=== PATIENT | female | born 1945 | race Asian ===

== ENCOUNTER 2018-12-15 13:05 | Inpatient (IN) | payer MEDICARE, MEDICAID ==
[~2018-12-15] VITALS: Ht 149.9 cm; Wt 81.6 kg
[2018-12-15] MEDS ORDERED: PLEASE ENTER HEIGHT AND WEIGHT MC SCH (13:30)
[2018-12-15] MEDS ORDERED: SODIUM CHLORIDE FLUSH 10ML SYR IVF ONE (13:30)
--- NOTE | 2018-12-15 13:31 | NUR ---
BIB EMS FROM HOME. PT W/ C/O GENERALIZED WEAKNESS SINCE JULY. ONSET ON LEFT SIDE CHEST PRESSURE/PAIN THIS MORNING. DENIES SOB, N/V/D. STATES THAT HER MD RECENTLY INCREASED HER METFORMIN FROM 1000MG/DAY TO 1500MG/DAY WELL ONE OTHER 10MG MEDICATION THAT SHE DOESN'T KNOW THE NAME OF. PT TRANSFERED INDEPENDENTLY FROM EMS [facility] TO ED [facility]. DR. JAY AT BEDSIDE, PT ASSESSMENT REV AND QUESTIONS ANSWERED. ORDERS REC'D. ALL MONITORS PLACED, EKG, PCXR AND LABS DRAWN. CALL LIGHT W/I REACH. VS STABLE, NAD NOTED.
[2018-12-15 13:40] LABS: BASOPHILS # (AUTO) 0.05 x10^3/uL (0-0.1); BASOPHILS % (AUTO) 1 % (0-1); EOSINOPHILS # (AUTO) 0.19 x10^3/uL (0-0.4); EOSINOPHILS % (AUTO) 2 % (1-7); LYMPHOCYTES % (AUTO) 22 % (22-44); MD NO; MEAN CORPUSCULAR HEMOGLOBIN 30.2 pg (27.0-34.8); MEAN CORPUSCULAR HGB CONC 33.6 g/dL (32.4-35.8); MEAN PLATELET VOLUME 9.9 fL (7.4-10.4); MONOCYTES # (AUTO) 0.74 x10^3/uL (0.2-0.8); MONOCYTES % (AUTO) 9 % (2-9); NEUTROPHILS # (AUTO) 5.36 x10^3/uL (1.8-6.8); NEUTROPHILS % (AUTO) 66 % (42-75); PLATELET COUNT 298 x10^3/uL (130-400); RED BLOOD COUNT 4.13 x10^6/uL (3.82-5.3); RED CELL DISTRIBUTION WIDTH 13.8 % (9.6-15.2)
[2018-12-15 13:52] LABS: ALANINE AMINOTRANSFERASE 88 U/L (12-78); ALBUMIN 3.6 g/dL (3.4-5.0); ANION GAP 7 mmol/L (5-15); CALCIUM 8.5 mg/dL (8.5-10.1); CHLORIDE 108 mmol/L (98-107); CREATININE 1.03 mg/dL (0.55-1.02)
[2018-12-15 13:54] LABS: MICROSCOPIC NOT IND
[2018-12-15 13:55] LABS: CULTURE INDICATED? NO
[2018-12-15 14:01] LABS: ALKALINE PHOSPHATASE 93 U/L (45-117); BILIRUBIN,TOTAL 0.6 mg/dL (0.2-1.0)
[2018-12-15 14:04] LABS: TROPONIN I 0.139 ng/mL (0.000-0.045)
[2018-12-15] MEDS ORDERED: ASPIRIN 81 MG TABLET CHEW ONE (14:13)
[2018-12-15] MEDS ORDERED: METO-93 PO (14:21)
[2018-12-15] MEDS ORDERED: FURO-93 PO (14:22)
[2018-12-15] MEDS ORDERED: POTA10TA6 PO (14:22)
[2018-12-15] MEDS ORDERED: LINA5TAB PO (14:23)
[2018-12-15] MEDS ORDERED: BACL20TA PO (14:23)
[2018-12-15] MEDS ORDERED: PANT40TA5 PO (14:24)
[2018-12-15] MEDS ORDERED: METF500T9 PO (14:24)
[2018-12-15] MEDS ORDERED: ALPR0.5T6 PO (14:25)
[2018-12-15] MEDS ORDERED: ESCI10TA PO (14:25)
[2018-12-15] MEDS ORDERED: GABA600T7 PO (14:26)
[2018-12-15] MEDS ORDERED: LOSA100T14 PO (14:27)
[2018-12-15] MEDS ORDERED: PHEN37.53 PO (14:29)
[2018-12-15] MEDS ORDERED: ASPIRIN 81 MG TABLET CHEW PO ONE (14:30)
[2018-12-15] MEDS ORDERED: SODIUM CHLORIDE FLUSH 10ML SYR IVF PRN (14:30)
[2018-12-15 14:32] LABS: ACETONE, SERUM Negative (Negative)
--- NOTE | 2018-12-15 14:49 | NUR ---
assumed care of pt while primary rn at lunch. pt assisted to br. hospitalist at bedside at this time.
[2018-12-15] MEDS ORDERED: ACETAMINOPHEN 325 MG TABLET PO PRN (15:00)
[2018-12-15] MEDS ORDERED: hydrALAzine 20 MG/ML, 1ML IVPush PRN (15:00)
[2018-12-15] MEDS ORDERED: NITROGLYCERIN 0.4 MG BOTTLE (25 TABS) SL PRN (15:00)
[2018-12-15] MEDS ORDERED: POLYETHYLENE GLYCOL 17 GM PACKET PO PRN (15:00)
[2018-12-15] MEDS ORDERED: morphine SULFATE 10 MG/ML, 1ML IVPush PRN (15:00)
[2018-12-15 15:34] LABS: HEMOGLOBIN A1C 7.7 % (4.2-6.3)
[2018-12-15 15:35] VITALS: BP 172/106
[2018-12-15 15:43] LABS: TROPONIN I 0.143 ng/mL (0.000-0.045)
[2018-12-15 15:47] VITALS: BP 122/64
[2018-12-15] MEDS ORDERED: ESCITALOPRAM 10MG TABLET PO SCH (16:00)
[2018-12-15] MEDS ORDERED: GABAPENTIN 300 MG CAPSULE PO SCH (16:00)
[2018-12-15] MEDS: INSULIN LISPRO 100 UNITS/ML, PEN SQ-INSULIN SCH ×2 (16:23→20:56)
[2018-12-15] MEDS: HEPARIN 5,000 UNITS/ML, 1ML SQ SCH (16:24)
[2018-12-15 18:37] VITALS: BP 107/70
[2018-12-15 19:32] VITALS: BP 103/67
[2018-12-15] MEDS: GABAPENTIN 300 MG CAPSULE PO SCH (20:56)
[2018-12-15] MEDS ORDERED: BACLOFEN 10 MG TABLET PO SCH (21:00)
[2018-12-15 21:13] LABS: TROPONIN I 0.144 ng/mL (0.000-0.045)
[2018-12-16] MEDS: HEPARIN 5,000 UNITS/ML, 1ML SQ SCH ×2 (01:33→10:32)
[2018-12-16 01:43] VITALS: BP 128/81
[2018-12-16 05:10] LABS: BASOPHILS # (AUTO) 0.06 x10^3/uL (0-0.1); BASOPHILS % (AUTO) 1 % (0-1); EOSINOPHILS % (AUTO) 4 % (1-7); LYMPHOCYTES # (AUTO) 1.97 x10^3/uL (1-3.4); LYMPHOCYTES % (AUTO) 26 % (22-44); MD NO; MEAN CORPUSCULAR HEMOGLOBIN 30.2 pg (27.0-34.8); MEAN CORPUSCULAR HGB CONC 33.3 g/dL (32.4-35.8); MEAN CORPUSCULAR VOLUME 90.5 fL (80-100); MEAN PLATELET VOLUME 9.9 fL (7.4-10.4); MONOCYTES # (AUTO) 0.68 x10^3/uL (0.2-0.8); MONOCYTES % (AUTO) 9 % (2-9); NEUTROPHILS # (AUTO) 4.65 x10^3/uL (1.8-6.8); NEUTROPHILS % (AUTO) 61 % (42-75); PLATELET COUNT 305 x10^3/uL (130-400); RED BLOOD COUNT 4.21 x10^6/uL (3.82-5.3); RED CELL DISTRIBUTION WIDTH 13.7 % (9.6-15.2)
[2018-12-16 05:22] LABS: ALANINE AMINOTRANSFERASE 80 U/L (12-78); ALBUMIN 3.3 g/dL (3.4-5.0); ANION GAP 4 mmol/L (5-15); CALCIUM 8.3 mg/dL (8.5-10.1); CHLORIDE 107 mmol/L (98-107); CHOLESTEROL, TOTAL 157 mg/dL (140-239)
[2018-12-16 05:24] LABS: ALKALINE PHOSPHATASE 85 U/L (45-117); BILIRUBIN,TOTAL 0.5 mg/dL (0.2-1.0); CHOL/HDL RATIO 3.3; HDL CHOL % 30 % (28-40); HDL CHOLESTEROL (DIRECT) 47 mg/dL (40-60); LDL CHOLESTEROL,CALCULATED 78 mg/dL (54-169); LDL/HDL RATIO 1.7 (0.5-3.0); TOTAL PROTEIN 6.5 g/dL (6.4-8.2); TRIGLYCERIDES 161 mg/dL (50-200); VLDL CHOLESTEROL 32 mg/dL (0-25)
[2018-12-16] MEDS ORDERED: ASPIRIN 325 MG TABLET EC PO SCH (06:00)
[2018-12-16] MEDS ORDERED: LEVOTHYROXINE 112 MCG TABLET PO SCH (06:00)
[2018-12-16] MEDS: INSULIN LISPRO 100 UNITS/ML, PEN SQ-INSULIN SCH ×3 (07:00→16:43)
[2018-12-16 08:12] VITALS: BP 133/77
[2018-12-16] MEDS: GABAPENTIN 300 MG CAPSULE PO SCH ×2 (08:15→16:00)
[2018-12-16] MEDS ORDERED: LINAGLIPTIN 5 MG TAB PO SCH (09:00)
[2018-12-16] MEDS ORDERED: PANTOPROZOLE 40MG TABLET PO SCH (09:00)
[2018-12-16] MEDS ORDERED: LOSARTAN 25MG TABLET PO SCH (09:00)
[2018-12-16] MEDS ORDERED: POTASSIUM CHLORIDE 10 MEQ TABLET.ER PO SCH (09:00)
[2018-12-16] MEDS ORDERED: ESCITALOPRAM 10MG TABLET PO SCH (09:00)
[2018-12-16] MEDS ORDERED: METOPROLOL SUCCINATE 50 MG TAB.ER.24H PO SCH (09:00)
[2018-12-16] MEDS ORDERED: REGADENOSON 0.4 MG/5 ML SYRINGE ONE (12:23)
[2018-12-16 14:27] VITALS: BP 127/64
== END 2018-12-16 18:07 | disposition home or self-care (01) | DRG 311 ==
LOC: ED 14:55 → EDIP 14:56 → 5SO 15:29
PROVIDERS: ADMIT Hospitalist; ATTEND Hospitalist
DX: I24.8 Other forms of acute ischemic heart disease (principal); E03.9 Hypothyroidism, unspecified; E11.9 Type 2 diabetes mellitus without complications; E78.5 Hyperlipidemia, unspecified; F41.9 Anxiety disorder, unspecified; I11.0 Hypertensive heart disease with heart failure; I50.9 Heart failure, unspecified; F32.9 Major depressive disorder, single episode, unspecified
CPT/HCPCS: 36415; 71045; 78452; 80053; 80061; 81003; 82010; 82800; 82962; 83036; 83690; 83735; 83880; 84484; 85025; 85520; 93005; 93017; 99285; G0378; J1644; J2785; A9502; C9898

== ENCOUNTER 2019-03-31 12:50 | Outpatient (CLI) | payer MEDICARE, MEDICAID | END 2019-03-31 23:59 | disposition home or self-care (01) | LOC: STAR 12:50 | PROVIDERS: ATTEND Obstetrics & Gynecology | DX: Z01.818 Encounter for other preprocedural examination (principal); D25.9 Leiomyoma of uterus, unspecified | CPT/HCPCS: 93005 ==

== ENCOUNTER 2019-04-07 09:08 | Inpatient (IN) | payer MEDICARE, MEDICAID ==
[~2019-04-07] VITALS: Ht 149.9 cm; Wt 62.0 kg
[2019-04-08 13:15] VITALS: BP 114/65
== END 2019-04-08 14:24 | disposition home or self-care (01) | DRG 743 ==
LOC: OUT 09:08 → 4NOR 15:30 → OUT 15:33 → DCLOUNGE 04-08 14:18
PROVIDERS: ADMIT Obstetrics & Gynecology; ATTEND Obstetrics & Gynecology
PROC: 0TJB8ZZ Inspection of Bladder, Via Natural or Artificial Opening Endoscopic (ICD-10-PCS; principal; 2019-04-07)
PROC: 0UT94ZZ Resection of Uterus, Percutaneous Endoscopic Approach (ICD-10-PCS; 2019-04-07)
PROC: 0UT74ZZ Resection of Bilateral Fallopian Tubes, Percutaneous Endoscopic Approach (ICD-10-PCS; 2019-04-07)
PROC: 0UT24ZZ Resection of Bilateral Ovaries, Percutaneous Endoscopic Approach (ICD-10-PCS; 2019-04-07)
DX: D25.9 Leiomyoma of uterus, unspecified (principal); N95.0 Postmenopausal bleeding; I10 Essential (primary) hypertension; E11.9 Type 2 diabetes mellitus without complications; N84.1 Polyp of cervix uteri; Z88.8 Allergy status to other drugs, medicaments and biological substances
CPT/HCPCS: 82962; 85025; 88307; G0378; J0171; J0690; J1100; J1170; J2250; J2405; J2704; J3010; J3480; J3490; J7120

== ENCOUNTER 2019-04-10 13:20 | Emergency (ER) | payer MEDICARE, MEDICAID ==
[~2019-04-10] VITALS: Ht 149.9 cm; Wt 70.0 kg
[2019-04-10 13:25] VITALS: BP 140/72
== END 2019-04-10 16:27 | disposition home or self-care (01) ==
LOC: ED 16:00
DX: K64.8 Other hemorrhoids (principal); K59.00 Constipation, unspecified; I10 Essential (primary) hypertension; E11.9 Type 2 diabetes mellitus without complications
CPT/HCPCS: 36415; 74021; 80048; 82040; 85025; 99284

== ENCOUNTER 2019-09-12 14:00 | Observation (INO) | payer MEDICARE, MEDICAID ==
[~2019-09-12] VITALS: Ht 152.4 cm; Wt 60.0 kg
[~2019-09-12 14:00] MED LIST: ALPR0.5T6 PO; BACL20TA PO; CALC-534 PO; ESCI10TA PO; FURO-93 PO; FURO20TA3 PO; GABA300C10 PO; GABA600T7 PO; IBUP-1840 PO; IBUP200T49 PO; LEVO112T4 PO; LINA5TAB PO; LOSA100T14 PO; LOSA50TA14 PO; METF500T12 PO; METF500T17 PO; METO-93 PO; ONDA8TAB16 SL; ONDA8TAB9 PO; OXYC-302 PO; PANT40TA5 PO; PHEN37.53 PO; POTA10TA6 PO; VITA1CAP PO; baclofen PO; potassium chloride PO
[2019-09-12] MEDS ORDERED: SODIUM CHLORIDE 0.9% 1,000 ML IV ONE (14:11)
[2019-09-12] MEDS ORDERED: SODIUM CHLORIDE FLUSH 10ML SYR IVF ONE (14:30)
--- NOTE | 2019-09-12 14:38 | NUR ---
PT BIB EMS FOR FLU LIKE SYMPTOMS. PT HAS CO OF WEAKNESS, COUGH, N/V, LOW GRADE FEVER, UPPER L ABDOMINAL PAIN. PT STATES SHE CANNOT MOVE AROUND MUCH WITH OUT BECOMING TIRED. MD AT BEDSIDE. VS STABLE. IV ESTABLISHED, BLOOD CULTURES DRAWN. FLUIDS INFUSING
[2019-09-12 14:53] LABS: BASOPHILS # (AUTO) 0.04 x10^3/uL (0-0.1); BASOPHILS % (AUTO) 1 % (0-1); EOSINOPHILS # (AUTO) 0.04 x10^3/uL (0-0.4); EOSINOPHILS % (AUTO) 1 % (1-7); LYMPHOCYTES # (AUTO) 1.15 x10^3/uL (1-3.4); LYMPHOCYTES % (AUTO) 14 % (22-44); MD NO; MEAN CORPUSCULAR HEMOGLOBIN 30.9 pg (27.0-34.8); MEAN CORPUSCULAR HGB CONC 33.1 g/dL (32.4-35.8); MEAN CORPUSCULAR VOLUME 93.4 fL (80-100); MEAN PLATELET VOLUME 9.6 fL (7.4-10.4); MONOCYTES # (AUTO) 0.69 x10^3/uL (0.2-0.8); MONOCYTES % (AUTO) 8 % (2-9); NEUTROPHILS # (AUTO) 6.38 x10^3/uL (1.8-6.8); NEUTROPHILS % (AUTO) 77 % (42-75); PLATELET COUNT 317 x10^3/uL (130-400); RED BLOOD COUNT 4.22 x10^6/uL (3.82-5.3)
[2019-09-12 15:04] LABS: ALANINE AMINOTRANSFERASE 31 U/L (12-78); ALBUMIN 3.3 g/dL (3.4-5.0); ANION GAP 8 mmol/L (5-15); CALCIUM 8.3 mg/dL (8.5-10.1); CHLORIDE 106 mmol/L (98-107); CREATININE 0.84 mg/dL (0.55-1.02)
[2019-09-12 15:14] LABS: ALKALINE PHOSPHATASE 68 U/L (45-117); BILIRUBIN,TOTAL 0.5 mg/dL (0.2-1.0); TOTAL PROTEIN 6.7 g/dL (6.4-8.2)
--- NOTE | 2019-09-12 15:20 | NUR ---
UA SENT. PT IS RESTING. NO COMPLAINTS AT THIS TIME.
[2019-09-12 15:22] LABS: CULTURE INDICATED? YES; MICROSCOPIC INDICATED
[2019-09-12 15:33] LABS: FREE T4 (FREE THYROXINE) 1.94 ng/dL (0.76-1.46)
[2019-09-12] MEDS ORDERED: CEFTRIAXONE PMX 1GM/50ML 50 ML ONE (15:42)
[2019-09-12] MEDS ORDERED: CEFTRIAXONE PMX 1GM/50ML 50 ML IV ONE (16:00)
[2019-09-12] MEDS ORDERED: MAALOX/HYOSCYAMINE/LIDOCAINE 45 ML BTL PO PRN (16:00)
[2019-09-12] MEDS ORDERED: DEXTROSE 4 GM TAB.CHEW PO PRN (16:30)
[2019-09-12] MEDS ORDERED: ACETAMINOPHEN 325 MG TABLET PO PRN (16:30)
[2019-09-12] MEDS ORDERED: ONDANSETRON ODT 4 MG PO PRN (16:30)
[2019-09-12] MEDS ORDERED: BACLOFEN 10 MG TABLET PO PRN (16:30)
[2019-09-12] MEDS ORDERED: morphine SULFATE 10 MG/ML, 1ML IVPush PRN (16:30)
[2019-09-12] MEDS ORDERED: hydrALAzine 20 MG/ML, 1ML IVPush PRN (16:30)
[2019-09-12] MEDS ORDERED: GLUCAGON 1 MG IM PRN (16:30)
[2019-09-12] MEDS ORDERED: ONDANSETRON 2MG/ML, 2ML IVPush PRN (16:30)
[2019-09-12] MEDS ORDERED: DEXTROSE 50%, 50ML SYRINGE IVPush PRN (16:30)
[2019-09-12] MEDS ORDERED: OXYcodone/APAP 5/325MG TABLET PO PRN ×2 (16:30)
--- NOTE | 2019-09-12 16:32 | NUR ---
[facility] AT BEDSIDE DISCUSSING POC OF ADMIT.
--- NOTE | 2019-09-12 16:49 | NUR ---
TASK RN: REPORT TO FLOOR RN ALL QUESTIONS ADDRESSED , PT READY FOR TRANSPORT
[2019-09-12 17:15] VITALS: BP 143/82
[2019-09-12] MEDS: NS + 20MEQ KCL 1,000 ML IV SCH (18:25)
[2019-09-12] MEDS: PANTOPRAZOLE 40 MG IV IVPush SCH (18:25)
[2019-09-12 18:59] VITALS: BP 137/77
[2019-09-12 19:27] VITALS: BP 138/84
[2019-09-12] MEDS: INSULIN LISPRO 100 UNITS/ML, PEN SQ-INSULIN SCH (21:00)
[2019-09-12] MEDS: GABAPENTIN 300 MG CAPSULE PO SCH (21:00)
[2019-09-12] MEDS: SODIUM CHLORIDE FLUSH 10ML SYR IVF SCH (21:00)
[2019-09-13 02:01] VITALS: BP 104/70
[2019-09-13] MEDS: PANTOPRAZOLE 40 MG IV IVPush SCH ×2 (04:33→16:00)
[2019-09-13] MEDS ORDERED: LEVOTHYROXINE 112 MCG TABLET PO SCH (06:00)
[2019-09-13] MEDS: INSULIN LISPRO 100 UNITS/ML, PEN SQ-INSULIN SCH ×3 (06:14→16:03)
[2019-09-13 07:15] VITALS: BP 100/64
[2019-09-13] MEDS: NS + 20MEQ KCL 1,000 ML IV SCH (08:53)
[2019-09-13] MEDS: SODIUM CHLORIDE FLUSH 10ML SYR IVF SCH (08:55)
[2019-09-13] MEDS: GABAPENTIN 300 MG CAPSULE PO SCH ×2 (08:55→16:02)
[2019-09-13] MEDS ORDERED: LOSARTAN 50MG TABLET PO SCH (09:00)
[2019-09-13] MEDS ORDERED: LINAGLIPTIN 5 MG TAB PO SCH (09:00)
[2019-09-13] MEDS ORDERED: METOPROLOL SUCCINATE 50 MG TAB.ER.24H PO SCH (09:00)
[2019-09-13] MEDS ORDERED: CEPH-368 PO (12:41)
[2019-09-13] MEDS ORDERED: CEFTRIAXONE PMX 1GM/50ML 50 ML IV SCH (13:00)
[2019-09-13 13:35] VITALS: BP 117/75
== END 2019-09-13 18:26 | disposition home or self-care (01) ==
LOC: ED 14:51 → SUATTDRO 15:44 → EDIP 16:04 → 4NE 18:14
PROVIDERS: ADMIT Hospitalist; ATTEND Hospitalist
DX: N39.0 Urinary tract infection, site not specified (principal); B96.89 Other specified bacterial agents as the cause of diseases classified elsewhere; M19.90 Unspecified osteoarthritis, unspecified site; R53.1 Weakness; E03.9 Hypothyroidism, unspecified; K64.9 Unspecified hemorrhoids; R63.4 Abnormal weight loss; E11.9 Type 2 diabetes mellitus without complications; I10 Essential (primary) hypertension; E78.5 Hyperlipidemia, unspecified; F32.9 Major depressive disorder, single episode, unspecified; Z90.710 Acquired absence of both cervix and uterus; Z87.440 Personal history of urinary (tract) infections
CPT/HCPCS: 36415; 71045; 80053; 81001; 82962; 83605; 84439; 84443; 84481; 85025; 87040; 87077; 87086; 87184; 87186; 93005; 96365; 96366; 96375; 96376; 99284; C9113; G0378; J0696; J3480; J7030

== ENCOUNTER 2019-09-20 19:37 | Emergency (ER) | payer MEDICARE, MEDICAID ==
[~2019-09-20] VITALS: Ht 152.4 cm; Wt 60.0 kg
[~2019-09-20 19:37] MED LIST changes: +CEPH-368 PO
[2019-09-20] MEDS ORDERED: ACETAMINOPHEN 325 MG TABLET PO ONE (20:00)
--- NOTE | 2019-09-20 20:07 | NUR ---
BIB [facility] FROM HOME FOR CHILLS, WHICH PT DENIES HAVING ANYMORE. NAD NOTED AT THIS TIME. PT VERY TALKATIVE WITH STAFF, FRIENDLY. UA COLLECTED AND SENT. LAB AT BEDSIDE.
[2019-09-20 20:09] LABS: MICROSCOPIC NOT IND
[2019-09-20] MEDS ORDERED: [UNRECOGNIZED DRUG - OTHER] PO (20:11)
--- NOTE | 2019-09-20 20:16 | NUR ---
PT AMBULATES WELL TO BATHROOM FOR UA SAMPLE. NAD NOTED AT THIS TIME. BACK IN BED. SIDE RAILS UP, CALL LIGHT IN REACH.
[2019-09-20 20:18] LABS: BASOPHILS # (AUTO) 0.01 x10^3/uL (0-0.1); BASOPHILS % (AUTO) 0 % (0-1); EOSINOPHILS # (AUTO) 0.05 x10^3/uL (0-0.4); EOSINOPHILS % (AUTO) 0 % (1-7); LYMPHOCYTES % (AUTO) 4 % (22-44); MD NO; MEAN CORPUSCULAR HEMOGLOBIN 30.4 pg (27.0-34.8); MEAN CORPUSCULAR HGB CONC 32.8 g/dL (32.4-35.8); MEAN CORPUSCULAR VOLUME 92.6 fL (80-100); MEAN PLATELET VOLUME 9.5 fL (7.4-10.4); MONOCYTES # (AUTO) 0.12 x10^3/uL (0.2-0.8); MONOCYTES % (AUTO) 1 % (2-9); NEUTROPHILS # (AUTO) 13.04 x10^3/uL (1.8-6.8); NEUTROPHILS % (AUTO) 94 % (42-75); PLATELET COUNT 272 x10^3/uL (130-400); RED BLOOD COUNT 4.07 x10^6/uL (3.82-5.3)
[2019-09-20 20:30] LABS: ALANINE AMINOTRANSFERASE 22 U/L (12-78); ALBUMIN 3.4 g/dL (3.4-5.0); ANION GAP 9 mmol/L (5-15); CALCIUM 8.7 mg/dL (8.5-10.1); CHLORIDE 105 mmol/L (98-107)
[2019-09-20 20:32] LABS: ALKALINE PHOSPHATASE 89 U/L (45-117); BILIRUBIN,TOTAL 0.6 mg/dL (0.2-1.0)
[2019-09-20 20:37] LABS: CULTURE INDICATED? NO
--- NOTE | 2019-09-20 21:01 | NUR ---
PT ASLEEP IN BED UPON ENTRY TO ROOM. AWAKENS EASILY. NAD NOTED AT THIS TIME. RESPIRATIONS EVEN AND UNLABORED. PT DENIES PAIN AT THIS TIME. REQUESTS BATHROOM.
--- NOTE | 2019-09-20 21:16 | NUR ---
Note gabriel in [facility] - 09/20/19 at 2129 by [email or web address] PT AMBULATES TO BATHROOM WELL. NAD NOTED.
--- NOTE | 2019-09-20 21:16 | NUR ---
PT AMBULATING WELL IN ROOM WITH SHOES ON. NAD NOTED.
--- NOTE | 2019-09-20 21:25 | NUR ---
PT AMBULATING WITH RN ESCORT DOWN [place]. [facility]. PT ASSESSED BY PROVIDER AND 2 RN'S. PT STOOD WITH ASSIST, DENIES DIZZINESS. PT TAKES STEPS OVER TO [place], BACK IN BED. PT REPORTS RT HIP TENDERNESS, LT FOREARM SORENESS. PROVIDER AWARE. NUMERICAL CONTROL LATHE OPERATOR AWARE. PT ATTACHED TO ALL MONITORS. PT MAKES REQUESTS TO GET BACK UP "I'M FINE, I'M SORRY. I'M FINE. I CAN GO TO THE BATHROOM." PT HELPED TO BEDPAN FOR SAFETY. Addendum: 09/20/19 at 2221 by [email or web address] Left hip tenderness, not right
--- NOTE | 2019-09-20 21:35 | NUR ---
Report to CYRIL Flores. Pt sitting up in bed, denies pain on palpation. ER Provider to assess pt.
[2019-09-20] MEDS ORDERED: ACETAMINOPHEN 325 MG TABLET ONE (21:45)
--- NOTE | 2019-09-20 21:49 | NUR ---
DISCUSSED LABS AND VITALS WITH PROVIDER. NO NEW ORDERS RECIEVED.
[2019-09-20] MEDS ORDERED: SODIUM CHLORIDE 0.9% 1,000ML IVBOLUS ONE (22:00)
[2019-09-20] MEDS ORDERED: SODIUM CHLORIDE FLUSH 10ML SYR IVF ONE (22:00)
--- NOTE | 2019-09-20 22:00 | NUR ---
REPORT FROM RAISSA. PT TO ALYSSA AT THIS TIME
[2019-09-20 22:07] LABS: RAPID INFLUENZA A Negative (Negative); RAPID INFLUENZA B Negative (Negative)
--- NOTE | 2019-09-20 23:05 | NUR ---
pt educated not to get out of bed without first pressing the call light. bed rails up x2. call light within reach. pt verbalized understanding. pt denying pain in her hips/legs at this time. pt states she has a scratch on her left arm and I was unable to observe any markings on either of her arms. daughter at bedside. piv placed and ivf initiated per emar.
[2019-09-21 00:03] VITALS: BP 104/46
== END 2019-09-21 00:13 | disposition home or self-care (01) ==
LOC: ED 19:48
DX: R50.9 Fever, unspecified (principal); M79.10 Myalgia, unspecified site; I10 Essential (primary) hypertension; E11.9 Type 2 diabetes mellitus without complications; E03.9 Hypothyroidism, unspecified; W19.XXXA Unspecified fall, initial encounter; Y93.89 Activity, other specified; Y92.89 Other specified places as the place of occurrence of the external cause; Y99.8 Other external cause status
CPT/HCPCS: 36415; 71045; 72190; 80053; 81003; 83605; 85025; 87040; 87400; 93005; 99284; J7030

== ENCOUNTER 2019-10-18 17:17 | Emergency (ER) | payer MEDICARE, MEDICAID ==
[~2019-10-18] VITALS: Ht 152.4 cm; Wt 60.0 kg
[~2019-10-18 17:17] MED LIST changes: +ACYC-113 PO; +CARV6.2512 PO; +HYDR-3341 PO; +MERO1PIG IV; +SENN17.25 PO; +[UNRECOGNIZED DRUG - OTHER] PO
--- NOTE | 2019-10-18 18:13 | NUR ---
FEMALE RN TO COMPLETE STRIGHT CATH PER PATIENT REQUEST.
[2019-10-18 18:37] LABS: ALBUMIN 3.4 g/dL (3.4-5.0); ANION GAP 8 mmol/L (5-15); CALCIUM 8.6 mg/dL (8.5-10.1); CHLORIDE 107 mmol/L (98-107)
[2019-10-18 18:40] LABS: ALANINE AMINOTRANSFERASE 24 U/L (12-78); ALKALINE PHOSPHATASE 76 U/L (45-117); BILIRUBIN,TOTAL 0.4 mg/dL (0.2-1.0); CREATININE 0.79 mg/dL (0.55-1.02)
[2019-10-18 18:43] LABS: BASOPHILS # (AUTO) 0.04 x10^3/uL (0-0.1); BASOPHILS % (AUTO) 1 % (0-1); EOSINOPHILS # (AUTO) 0.26 x10^3/uL (0-0.4); EOSINOPHILS % (AUTO) 3 % (1-7); LYMPHOCYTES # (AUTO) 1.97 x10^3/uL (1-3.4); LYMPHOCYTES % (AUTO) 26 % (22-44); MD NO; MEAN CORPUSCULAR HEMOGLOBIN 30.4 pg (27.0-34.8); MEAN CORPUSCULAR VOLUME 92.4 fL (80-100); MEAN PLATELET VOLUME 9.5 fL (7.4-10.4); MONOCYTES # (AUTO) 0.58 x10^3/uL (0.2-0.8); MONOCYTES % (AUTO) 8 % (2-9); NEUTROPHILS # (AUTO) 4.85 x10^3/uL (1.8-6.8); NEUTROPHILS % (AUTO) 63 % (42-75); PLATELET COUNT 324 x10^3/uL (130-400); RED BLOOD COUNT 3.38 x10^6/uL (3.82-5.3); RED CELL DISTRIBUTION WIDTH 14.3 % (9.6-15.2)
[2019-10-18 18:43] LABS: MICROSCOPIC NOT IND
[2019-10-18 18:45] LABS: CULTURE INDICATED? NO
--- NOTE | 2019-10-18 19:02 | NUR ---
PT UP RESTROOM WITH SOME ASSITANCE.
--- NOTE | 2019-10-18 19:25 | NUR ---
PT UP FOR RECHECK. AWAITING DISPO.
[2019-10-18 21:00] VITALS: BP 159/78
--- NOTE | 2019-10-18 21:00 | NUR ---
SPOKE AT LENGHT WITH PATIENT AND DAUGHTER IN-LAW REGAEDING CONCERNS. ERMD BACK AT BEDSIDE TO SPEAK WITH BOTH. PT TO BE D/C.
== END 2019-10-18 21:15 | disposition home or self-care (01) ==
LOC: ED 18:27
DX: R50.9 Fever, unspecified (principal); E11.9 Type 2 diabetes mellitus without complications; M19.90 Unspecified osteoarthritis, unspecified site; E03.9 Hypothyroidism, unspecified; Z90.710 Acquired absence of both cervix and uterus
CPT/HCPCS: 36415; 80053; 81003; 83605; 84145; 85025; 87040; 99283

== ENCOUNTER → 2020-09-29 | Outpatient (CLI) | payer MEDICARE, MEDICAID ==
[~2020-09-29] MED LIST changes: -ALPR0.5T6 PO; +ALPR0.5T93 PO; +CELE200C PO; +DOCU-131 PO; -ESCI10TA PO; +ESCI10TA97 PO; +METF-754 PO; -METF500T12 PO; +METO200T47 PO; +OMNIPAQUE 350 MG/ML, 100ML BOTTLE ONE; -OXYC-302 PO; +OXYC1TAB14 PO; +PANT40GR PO; +PANT40TA3 PO; -PANT40TA5 PO; +PANT40TA6 PO
== END | disposition home or self-care (01) ==
LOC: RAD 12:25
PROVIDERS: ATTEND Otolaryngology
DX: K22.8 Other specified diseases of esophagus (principal); K44.9 Diaphragmatic hernia without obstruction or gangrene; J31.2 Chronic pharyngitis
CPT/HCPCS: 36415; 70491; 74220; 82565; Q9967

== ENCOUNTER → 2021-01-27 | Outpatient (CLI) | payer MEDICARE, MEDICAID ==
[~2021-01-27] MED LIST changes: -ACYC-113 PO; +ACYC200C13 PO; +CALC500T93 PO; +FAMO-79 PO; -OMNIPAQUE 350 MG/ML, 100ML BOTTLE ONE
[2021-01-27 15:14] LABS: ALANINE AMINOTRANSFERASE 30 U/L (12-78); ALBUMIN 3.6 g/dL (3.4-5.0); ANION GAP 6 mmol/L (5-15); CALCIUM 8.9 mg/dL (8.5-10.1); CHLORIDE 106 mmol/L (98-107); CREATININE 0.84 mg/dL (0.55-1.02)
[2021-01-27 15:16] LABS: ALKALINE PHOSPHATASE 73 U/L (45-117); BILIRUBIN,TOTAL 0.3 mg/dL (0.2-1.0); TOTAL PROTEIN 7.2 g/dL (6.4-8.2)
== END | disposition home or self-care (01) ==
LOC: STAR 13:41
PROVIDERS: ATTEND Internal Medicine Gastroenterology
DX: Z01.818 Encounter for other preprocedural examination (principal); D3A.8 Other benign neuroendocrine tumors; I25.89 Other forms of chronic ischemic heart disease; R94.31 Abnormal electrocardiogram [ECG] [EKG]; Z20.822 Contact with and (suspected) exposure to COVID-19
CPT/HCPCS: 36415; 80053; 93005; U0003; U0005

== ENCOUNTER 2021-01-30 22:05 | Emergency (ER) | payer MEDICARE, MEDICAID ==
[~2021-01-30] VITALS: Ht 154.9 cm; Wt 59.0 kg
[2021-01-30] MEDS ORDERED: MAALOX/HYOSCYAMINE/LIDOCAINE 45 ML BTL ONE (22:26)
[2021-01-30] MEDS ORDERED: MAALOX/HYOSCYAMINE/LIDOCAINE 45 ML BTL PO ONE (22:30)
[2021-01-30 22:43] LABS: BASOPHILS % (AUTO) 1 % (0-1); EOSINOPHILS % (AUTO) 1 % (1-7); LYMPHOCYTES % (AUTO) 18 % (22-44); MEAN CORPUSCULAR HEMOGLOBIN 25.5 pg (27.0-34.8); MEAN CORPUSCULAR HGB CONC 32.1 g/dL (32.4-35.8); MEAN PLATELET VOLUME 7.8 fL (7.4-10.4); MONOCYTES % (AUTO) 9 % (2-9); NEUTROPHILS % (AUTO) 71 % (42-75); PLATELET COUNT 401 x10^3/uL (130-400); RED BLOOD COUNT 3.95 x10^6/uL (3.82-5.3); RED CELL DISTRIBUTION WIDTH 17.8 % (9.6-15.2)
--- NOTE | 2021-01-30 22:58 | NUR ---
Pt reports no relief from GI cocktail
[2021-01-30 22:59] LABS: ALANINE AMINOTRANSFERASE 29 U/L (12-78); ALBUMIN 3.5 g/dL (3.4-5.0); ANION GAP 7 mmol/L (5-15); CALCIUM 8.5 mg/dL (8.5-10.1); CHLORIDE 107 mmol/L (98-107); CREATININE 0.81 mg/dL (0.55-1.02)
[2021-01-30 23:02] LABS: ALKALINE PHOSPHATASE 60 U/L (45-117); BILIRUBIN,TOTAL 0.5 mg/dL (0.2-1.0); TOTAL PROTEIN 7.1 g/dL (6.4-8.2)
[2021-01-30] MEDS ORDERED: SODIUM CHLORIDE FLUSH 10ML SYR IVF ONE (23:30)
[2021-01-30] MEDS ORDERED: ONDANSETRON 2MG/ML, 2ML IVPush ONE (23:30)
[2021-01-30] MEDS ORDERED: MORPHINE SULFATE 4 MG/ML, 1ML IVPush PRN (23:30)
[2021-01-30] MEDS ORDERED: ONDANSETRON 2MG/ML, 2ML ONE (23:33)
[2021-01-30] MEDS ORDERED: MORPHINE SULFATE 4 MG/ML, 1ML ONE (23:34)
[2021-01-31 01:12] VITALS: BP 135/56
--- NOTE | 2021-01-31 01:12 | NUR ---
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
== END 2021-01-31 01:53 | disposition home or self-care (01) ==
LOC: ED 23:59
DX: K29.00 Acute gastritis without bleeding (principal); I10 Essential (primary) hypertension; E11.9 Type 2 diabetes mellitus without complications; R94.31 Abnormal electrocardiogram [ECG] [EKG]
CPT/HCPCS: 36415; 71045; 80053; 83690; 85025; 93005; 96374; 96375; 99285; J2270; J2405

== ENCOUNTER 2021-02-02 06:01 | Day surgery (SDC) | payer MEDICARE, MEDICAID ==
[~2021-02-02] VITALS: Ht 152.4 cm; Wt 62.8 kg
[2021-02-02] MEDS ORDERED: CHLORHEXIDINE 15 ML UDC ONE (06:26)
[2021-02-02] MEDS ORDERED: LACTATED RINGERS 1,000 ML IV SCH (06:30)
[2021-02-02] MEDS ORDERED: CHLORHEXIDINE 15 ML UDC PO ONE (06:30)
[2021-02-02 06:51] VITALS: BP 137/92
[2021-02-02] MEDS ORDERED: METOCLOPRAMIDE 5 MG/ML, 2ML IVPush PRN (08:00)
[2021-02-02] MEDS ORDERED: ACETAMINOPHEN 325 MG TABLET PO PRN (08:00)
[2021-02-02] MEDS ORDERED: FENTANYL PF 100 MCG/2ML IV PRN (08:00)
[2021-02-02] MEDS ORDERED: DIPHENHYDRAMINE 50 MG/ML, 1ML IVPush PRN (08:00)
[2021-02-02] MEDS ORDERED: OXYcodone 5 MG/5 ML ORAL.SOL UDC PO PRN (08:00)
[2021-02-02] MEDS ORDERED: METOPROLOL 1 MG/ML, 5ML IV PRN (08:00)
[2021-02-02] MEDS ORDERED: hydrALAzine 20 MG/ML, 1ML IV PRN (08:00)
[2021-02-02] MEDS ORDERED: ONDANSETRON 2MG/ML, 2ML IVPush PRN (08:00)
[2021-02-02] MEDS ORDERED: LABETALOL 5MG/ML, 20ML IV PRN (08:00)
[2021-02-02] MEDS ORDERED: PROPOFOL 10 MG/ML, 50ML ONE (08:00)
[2021-02-02] MEDS ORDERED: PROMETHAZINE 25 MG/ML, 1ML IVPush PRN (08:00)
[2021-02-02] MEDS ORDERED: HALOPERIDOL 5 MG/ML IV PRN (08:00)
[2021-02-02] MEDS ORDERED: DIAZEPAM 5 MG/ML, 2ML IVPush PRN (08:00)
[2021-02-02] MEDS ORDERED: EPHEDRINE 50 MG/ML, 1ML IVPush PRN (08:00)
== END 2021-02-02 11:30 | disposition home or self-care (01) ==
LOC: OUT 06:01
PROVIDERS: ATTEND Internal Medicine Gastroenterology
DX: D3A.8 Other benign neuroendocrine tumors (principal); K44.9 Diaphragmatic hernia without obstruction or gangrene; K21.9 Gastro-esophageal reflux disease without esophagitis; E11.40 Type 2 diabetes mellitus with diabetic neuropathy, unspecified; I10 Essential (primary) hypertension; E03.9 Hypothyroidism, unspecified; D64.9 Anemia, unspecified; Z79.899 Other long term (current) drug therapy; Z88.8 Allergy status to other drugs, medicaments and biological substances
CPT/HCPCS: 43251; 82962; 88305; 88341; 88342; 88360; J2704; J7120

== ENCOUNTER 2021-05-02 13:32 | Emergency (ER) | payer MEDICARE, MEDICAID ==
[~2021-05-02] VITALS: Ht 152.4 cm; Wt 62.7 kg
[~2021-05-02 13:32] MED LIST changes: +OXYC1TAB12 PO; -OXYC1TAB14 PO
[2021-05-02 13:34] VITALS: BP 155/63
--- NOTE | 2021-05-02 13:54 | NUR ---
BIB EMS WITH C/O ABD PAIN 7/10 PAIN. PT CAME FROM HOME. EMS GAVE 100MCG [place] IV EN ROUTE. PT CONNECTED TO ALL MONITORS. GAVE CUP FOR U/A PT MISSED CUP WILL ATTEMPT AGAIN. PT IS NOW REQUESTING TO GO HOME PAIN HAS RESOLVED. PT RESTING IN [facility]
--- NOTE | 2021-05-02 14:03 | NUR ---
MD ASSESSED PT. PT DENIES ANY WORK-UP MD WILL ORDER MEDS THEN LIKELY D/C PT. PT RESTING IN [facility].
[2021-05-02] MEDS ORDERED: PROMETHAZINE 25 MG/ML, 1ML ONE (14:07)
[2021-05-02] MEDS ORDERED: PROMETHAZINE 25 MG/ML, 1ML IM ONE (14:30)
== END 2021-05-02 14:54 | disposition home or self-care (01) ==
LOC: ED 14:23
DX: R10.13 Epigastric pain (principal); R11.0 Nausea; I10 Essential (primary) hypertension; E11.9 Type 2 diabetes mellitus without complications; E03.9 Hypothyroidism, unspecified; Z90.710 Acquired absence of both cervix and uterus
CPT/HCPCS: 96372; 99283; J2550